=== PATIENT | male | born 1945 | race Caucasian/White ===

== ENCOUNTER 2017-07-17 13:13 | Emergency (ER) | payer MEDICARE ==
[~2017-07-17] VITALS: Ht 172.7 cm; Wt 89.8 kg
[~2017-07-17 13:13] MED LIST: ANTIBIOTIC O500 U/GM T; ASPIRIN81 M1 PO; BACTRIM DS 8001 TA1 PO; BENADRYL25 MG PO; CIPRO250 MG PO; Carafate1 GM PO; FLOMAX0.4 MG PO; KEFLEX500 M1 PO; LISINOPRIL10 MG PO; MEDROL DOSEPAK4 MG PO; MELOXICAM15 MG PO; OMEGA-3 FISH1200 M1 PO; PRILOSEC20 MG PO; STOOL SOFTENER100 M1 PO; VITAMIN B COMPLEX PO; ZESTRIL10 MG PO
== END 2017-07-17 14:21 | disposition home or self-care (01) ==
LOC: ED 13:13
DX: B35.4 Tinea corporis (principal); Z91.012 Allergy to eggs; Z88.1 Allergy status to other antibiotic agents; Z79.899 Other long term (current) drug therapy; Z98.52 Vasectomy status